=== PATIENT | female | born 1990 | race Caucasian/White ===

== ENCOUNTER → 2017-10-20 | Outpatient (REF) | payer BC, OTHER, SELFPAY ==
[~2017-10-20] MED LIST: ACET50TA PO; IBUP100SUS PO
== END ==
LOC: M LAB REF 16:53
PROVIDERS: ATTEND Physician Assistant
DX: R52 Pain, unspecified (principal); R50.9 Fever, unspecified

== ENCOUNTER → 2018-05-01 | Outpatient (REF) | payer OTHER ==
[2018-05-01 15:07] LABS: APPEARANCE, URINE CLEAR (CLEAR); BACTERIA, URINE AUTO NEGATIVE (NEGATIVE); BILIRUBIN, URINE AUTO NEGATIVE (NEGATIVE); BLOOD, URINE BLOOD NEGATIVE (NEGATIVE); COLOR, URINE YELLOW (YELLOW); GLUCOSE, URINE (UA) AUTO NEGATIVE (NEGATIVE); KETONE, URINE AUTO NEGATIVE (NEGATIVE); LEUKOCYTE ESTERASE, URINE AUTO NEGATIVE (NEGATIVE); MUCUS, URINE SMALL (NEGATIVE); NITRITE, URINE AUTO NEGATIVE (NEGATIVE); PROTEIN, URINE AUTO NEGATIVE (NEGATIVE); RBC, URINE AUTO 1 /HPF (0-3); SQUAMOUS EPITHELIAL CELL UR AU 3 /HPF (0-6); UROBILINOGEN, URINE AUTO 0.2 mg/dL (0.0-2.0); WBC, URINE AUTO 1 /HPF (0-3)
== END ==
LOC: M LAB REF 14:16
DX: R10.9 Unspecified abdominal pain (principal)

== ENCOUNTER → 2018-10-01 | Outpatient (REF) | payer MEDICAID, SELFPAY | LOC: M LAB REF 13:29 | PROVIDERS: ATTEND Advanced Practice Midwife | DX: Z12.4 Encounter for screening for malignant neoplasm of cervix (principal); R87.612 Low grade squamous intraepithelial lesion on cytologic smear of cervix (LGSIL) ==

== ENCOUNTER → 2018-11-04 | Outpatient (REF) | payer MEDICAID | LOC: M LAB REF 17:22 | PROVIDERS: ATTEND Obstetrics & Gynecology | DX: N87.1 Moderate cervical dysplasia (principal) ==

== ENCOUNTER → 2018-12-21 | Outpatient (CLI) | payer OTHER ==
[2018-12-21 21:07] LABS: BASO % 0.5 % (0.0-1.0); EOS # 0.1 10^3/uL (0.0-0.50); EOS % 0.8 % (0.0-3.0); HEMATOCRIT 36.3 % (36.0-47.0); HEMOGLOBIN 11.4 g/dl (12.0-15.5); LYMPH # 1.9 10^3/uL (1.5-6.5); LYMPH % 21.5 % (24.0-44.0); MEAN CORPUSCULAR HEMOGLOBIN 27.9 pg (27.0-33.0); MEAN CORPUSCULAR HGB CONC 31.4 g/dl (32.0-36.5); MEAN CORPUSCULAR VOLUME 88.8 fl (80.0-96.0); MONO # 0.5 10^3/uL (0.0-0.8); MONO % 6.2 % (0.0-5.0); NEUTROPHILS # 6.2 10^3/uL (1.8-7.7); NEUTROPHILS % 70.7 % (36.0-66.0); PLATELET COUNT, AUTOMATED 282 10^3/uL (150-450); RED BLOOD COUNT 4.09 10^6/uL (4.00-5.40); WHITE BLOOD COUNT 8.7 10^3/uL (4.0-10.0)
[2018-12-22 10:38] LABS: HIV 1&2 SCREEN CENTAUR NEGATIVE (NEGATIVE); RUBELLA IgG QUALITATIVE IMMUNE (IMMUNE)
[2018-12-22 10:49] LABS: CHLAMYDIA DNA AMPLIFICATION NEGATIVE (NEGATIVE); GC DNA AMPLIFICATION NEGATIVE (NEGATIVE)
== END ==
LOC: M SMT 13:49
PROVIDERS: ATTEND Advanced Practice Midwife
DX: Z34.81 Encounter for supervision of other normal pregnancy, first trimester (principal); Z3A.10 10 weeks gestation of pregnancy

== ENCOUNTER → 2018-12-27 | Outpatient (CLI) | payer OTHER | LOC: M SMT 15:22 | PROVIDERS: ATTEND Advanced Practice Midwife | DX: Z36.89 Encounter for other specified antenatal screening (principal) ==

== ENCOUNTER → 2019-01-17 | Outpatient (REF) | payer OTHER | LOC: M LAB REF 13:07 | PROVIDERS: ATTEND Advanced Practice Midwife | DX: Z34.82 Encounter for supervision of other normal pregnancy, second trimester (principal) ==

== ENCOUNTER → 2019-02-14 | Outpatient (CLI) | payer OTHER ==
[~2019-02-14] MED LIST changes: -ACET50TA PO; +IBUP100S44 PO; -IBUP100SUS PO; +MAPA500T17 PO
--- NOTE | 2019-02-14 15:58 | REP ---
Clinical: Anatomical evaluation. Comparison: None . Findings: Examination demonstrates a single live intrauterine in cephalic presentation. motion is identified by technologist. Placenta is noted anterior and grade grade 1 without evidence for placenta previa or abruption. Amniotic fluid volume is normal. Cervix measures 5.9 cm in length and appears closed. Nuchal cord noted. Gestational age by LMP 18 weeks 2 days with PUSHPA 07/16/2019 . Gestational age by current measurements 18 weeks 6 days with PUSHPA 07/12/2019 . FHR equals 160 beats per minute. BPD 4.5 cm 19 weeks 3 days HC 16.3 cm 19 weeks 0 days AC 13.0 cm 18 weeks 4 days FL 3.0 cm 19 weeks 1 day HL 2.9 cm 19 weeks 4 days HC/AC ratio 1.25 Estimated weight 262 grams ( 69th percentile). Anatomical assessment demonstrates normal structures including cranium, choroid plexus, cavum, cerebellum/posterior fossa, facial features, lungs, four-chamber heart, diaphragm, stomach, cord insertion/three-vessel cord, kidneys/bladder, spine, and extremities. Impression: 1. Single live intrauterine in cephalic presentation demonstrating appropriate interval growth. 2. Nuchal cord noted. 3. Limited evaluation of the cardiac ventricular outflow tracts. Remainder of the anatomical assessment is complete and normal. Electronically Signed by Narendra Cho MD 02/14/2019 03:50 P
== END ==
LOC: M SMT 14:28
PROVIDERS: ATTEND Advanced Practice Midwife
DX: Z34.82 Encounter for supervision of other normal pregnancy, second trimester (principal); Z3A.18 18 weeks gestation of pregnancy; O69.81X0 Labor and delivery complicated by cord around neck, without compression, not applicable or unspecified

== ENCOUNTER → 2019-03-08 | Outpatient (CLI) | payer OTHER ==
--- NOTE | 2019-03-09 08:03 | REP ---
Obstetric sonography: History: Supervision of followup anatomy. Findings: Scanning through the gravid uterus demonstrates a viable single intrauterine gestation in a cephalic lie. motion is observed and heart rate is recorded at 146 beats per minute. An anterior grade 1 placenta is seen without evidence of previa or abruption. Amniotic fluid is subjectively normal. Closed cervical length is 4.6 cm. No extrauterine abnormalities observed. There has been appropriate interval growth. Umbilical cord is seen draping over the neck. Closed cervical length is measured at 4.6 cm viewed transabdominally. No anomaly is seen. The following anatomic structures are identified and felt to be sonographically unremarkable: cranium, choroid plexus, cavum, cerebellum and posterior fossa, face and profile, lungs, four-chamber heart with left and right ventricular outflow tract views, diaphragm, left-sided stomach, abdominal wall cord insertion, three-vessel umbilical cord, kidneys and bladder, spine, upper and lower extremities. Biometry chart: BPD 5.6 cm = 23 weeks 0 days Head circumference 20.3 cm = 22 weeks 3 days Abdominal circumference 18.0 cm = 22 weeks 6 days Femur length 3.9 cm = 22 weeks 4 days Humeral length 3.7 cm = 22 weeks 6 days HC/AC ratio normal 1.13. Cephalic index normal 0.77. Estimated weight 525 grams, 1 pound 2 ounces, 91st percentile for 21 weeks 3 days. Impression: Viable single intrauterine gestation at 22 weeks 5 days by today's composite sonographic criteria. Expected gestational age estimate based on prior sonography is 22 weeks 0 days. PUSHPA by prior sonography July 12, 2019. anatomic survey is felt to be complete. Electronically Signed by Ervin Jacinto MD 03/09/2019 09:11 A
== END ==
LOC: M RAD 16:02
PROVIDERS: ATTEND Advanced Practice Midwife
DX: Z34.82 Encounter for supervision of other normal pregnancy, second trimester (principal); Z3A.22 22 weeks gestation of pregnancy

== ENCOUNTER → 2019-04-13 | Outpatient (CLI) | payer OTHER ==
[2019-04-13 11:06] LABS: HEMATOCRIT 35.1 % (36.0-47.0); HEMOGLOBIN 10.7 g/dl (12.0-15.5); MEAN CORPUSCULAR HEMOGLOBIN 27.8 pg (27.0-33.0); MEAN CORPUSCULAR HGB CONC 30.5 g/dl (32.0-36.5); MEAN CORPUSCULAR VOLUME 91.2 fl (80.0-96.0); PLATELET COUNT, AUTOMATED 250 10^3/uL (150-450); RED BLOOD COUNT 3.85 10^6/uL (4.00-5.40); WHITE BLOOD COUNT 9.9 10^3/uL (4.0-10.0)
== END ==
LOC: M SMT 09:07
PROVIDERS: ATTEND Advanced Practice Midwife
DX: Z34.82 Encounter for supervision of other normal pregnancy, second trimester (principal); Z3A.00 Weeks of gestation of pregnancy not specified

== ENCOUNTER → 2019-06-22 | Outpatient (REF) | payer OTHER | LOC: M LAB REF 17:25 | PROVIDERS: ATTEND Obstetrics & Gynecology | DX: Z34.83 Encounter for supervision of other normal pregnancy, third trimester (principal) ==

== ENCOUNTER → 2019-06-28 | Outpatient (CLI) | payer OTHER | LOC: M SMT 08:50 | PROVIDERS: ATTEND Advanced Practice Midwife | DX: Z36.89 Encounter for other specified antenatal screening (principal); Z3A.00 Weeks of gestation of pregnancy not specified ==

== ENCOUNTER 2019-07-09 23:21 | Inpatient (IN) | payer OTHER ==
[~2019-07-09] VITALS: Ht 157.5 cm; Wt 91.3 kg
[2019-07-09 23:28] VITALS: BP 117/73
[2019-07-09] MEDS ORDERED: OXYTOCIN 30 UNITS IN 0.9% NaCl 500ML IV BAG (J2590) As Ordered ONE (23:28)
[2019-07-09 23:43] VITALS: BP 115/73
[2019-07-09] MEDS ORDERED: OXYTOCIN DRIP 30 UNITS in APPROPRIATE DILUENT 1 EA IV SCH (23:47)
[2019-07-09] MEDS ORDERED: LR 1,000 ML IV SCH (23:47)
[2019-07-09 23:58] VITALS: BP 114/69
[2019-07-10] MEDS ORDERED: ACETAMINOPHEN 500 MG TAB PO PRN
[2019-07-10] MEDS ORDERED: DIBUCAINE 1% OINTMENT 30GM TOP PRN
[2019-07-10] MEDS ORDERED: IBUPROFEN 600 MG TAB PO PRN
[2019-07-10] MEDS ORDERED: PROMETHAZINE 25 MG TAB PO PRN
[2019-07-10] MEDS ORDERED: RHOGAM 300 MCG (1500 IU) INJ (J2790) IM SCH
[2019-07-10] MEDS ORDERED: DOCUSATE SODIUM 100 MG CAP PO PRN
[2019-07-10] MEDS ORDERED: ACETAMINOPHEN TAB 650MG DOSE (2X325MG) PO PRN
[2019-07-10] MEDS ORDERED: MEASLES,MUMPS,RUBELLA VACCINE INJ (MMR-II) (90707) SC SCH
[2019-07-10] MEDS ORDERED: IBUPROFEN 800 MG TAB PO PRN
[2019-07-10] MEDS ORDERED: ONDANSETRON 4MG/2ML VIAL (J2405) IV PRN
[2019-07-10 00:14] VITALS: BP 115/64
[2019-07-10 00:23] LABS: HEMATOCRIT 35.4 % (36.0-47.0); HEMOGLOBIN 11.1 g/dl (12.0-15.5); MEAN CORPUSCULAR HEMOGLOBIN 27.4 pg (27.0-33.0); MEAN CORPUSCULAR HGB CONC 31.4 g/dl (32.0-36.5); MEAN CORPUSCULAR VOLUME 87.4 fl (80.0-96.0); PLATELET COUNT, AUTOMATED 219 10^3/uL (150-450); RED BLOOD COUNT 4.05 10^6/uL (4.00-5.40); WHITE BLOOD COUNT 15.1 10^3/uL (4.0-10.0)
[2019-07-10 00:28] VITALS: BP 118/69
[2019-07-10] MEDS ORDERED: SLF 3 ML SYR IV PRN (00:30)
[2019-07-10 00:48] VITALS: BP 115/64
[2019-07-10 01:40] VITALS: BP 134/58
[2019-07-10 06:00] VITALS: BP 110/59
[2019-07-10] MEDS: SLF 3 ML SYR IV SCH ×3 (06:00→22:00)
[2019-07-10] MEDS ORDERED: PRENATAL VITAMINS CHEWABLE TABLET PO SCH (09:00)
[2019-07-10 18:17] VITALS: BP 101/54
[2019-07-11 05:56] VITALS: BP 102/58
[2019-07-11] MEDS: SLF 3 ML SYR IV SCH (06:00)
== END 2019-07-11 14:10 | disposition home or self-care (01) | DRG 544 ==
LOC: M LDI 23:21 → M OBS 07-10 01:30
PROVIDERS: ADMIT Obstetrics & Gynecology; ATTEND Obstetrics & Gynecology
PROC: 10D17ZZ Extraction of Products of Conception, Retained, Via Natural or Artificial Opening (ICD-10-PCS; principal; 2019-07-09)
DX: Z39.0 Encounter for care and examination of mother immediately after delivery (principal)

== ENCOUNTER → 2020-05-15 | Outpatient (REF) | payer OTHER | LOC: M SFHCWAGY 16:55 | PROVIDERS: ATTEND Advanced Practice Midwife | DX: Z12.4 Encounter for screening for malignant neoplasm of cervix (principal) ==

== ENCOUNTER → 2022-03-24 | Outpatient (REF) | payer OTHER | LOC: M PLALAB 12:56 | PROVIDERS: ATTEND Advanced Practice Midwife | DX: Z12.4 Encounter for screening for malignant neoplasm of cervix (principal) ==

== ENCOUNTER → 2023-02-04 | Outpatient (REF) | payer OTHER | LOC: M LAB REF 10:19 | PROVIDERS: ATTEND Physician Assistant | DX: J02.9 Acute pharyngitis, unspecified (principal); B34.9 Viral infection, unspecified ==

== ENCOUNTER → 2023-06-23 | Outpatient (CLI) | payer OTHER | LOC: M WHC 09:56 | PROVIDERS: ATTEND Registered Nurse | DX: N64.52 Nipple discharge (principal) ==

== ENCOUNTER → 2023-07-13 | Outpatient (REF) | payer OTHER | LOC: M PLALAB 16:43 | PROVIDERS: ATTEND Nurse Practitioner Family | DX: O92.6 Galactorrhea (principal) ==

== ENCOUNTER → 2023-10-14 | Outpatient (REF) | payer OTHER | LOC: M SFHCWAGY 10:16 | PROVIDERS: ATTEND Nurse Practitioner Family | DX: Z12.4 Encounter for screening for malignant neoplasm of cervix (principal) ==

== ENCOUNTER 2024-10-06 07:37 | Day surgery (SDC) | payer OTHER ==
[~2024-10-06] VITALS: Ht 157.5 cm; Wt 84.8 kg
[~2024-10-06 07:37] MED LIST changes: +NORE1TAB73 PO
[2024-10-06] MEDS ORDERED: LR 1,000 ML IV SCH (08:25)
[2024-10-06 08:37] LABS: HEMATOCRIT 37.4 % (36.0-47.0); HEMOGLOBIN 11.8 g/dl (12.0-15.5); MEAN CORPUSCULAR HEMOGLOBIN 27.7 pg (27.0-33.0); MEAN CORPUSCULAR HGB CONC 31.6 g/dl (32.0-36.5); MEAN CORPUSCULAR VOLUME 87.8 fl (80.0-96.0); PLATELET COUNT, AUTOMATED 291 10^3/uL (150-450); RED BLOOD COUNT 4.26 10^6/uL (4.00-5.40); WHITE BLOOD COUNT 5.4 10^3/uL (4.0-10.0)
[2024-10-06] MEDS ORDERED: ROCURONIUM BROMIDE 50MG/5ML VIAL As Ordered ONE (09:07)
[2024-10-06] MEDS ORDERED: KETOROLAC 60MG 2ML VIAL As Ordered ONE (09:07)
[2024-10-06] MEDS ORDERED: ONDANSETRON 4MG 2ML VIAL As Ordered ONE (09:07)
[2024-10-06] MEDS ORDERED: propofoL 200 MG/20 ML VIAL As Ordered ONE (09:07)
[2024-10-06] MEDS ORDERED: LIDOCAINE 2% 100MG/5ML SDV (FOR ANES.) As Ordered ONE (09:07)
[2024-10-06] MEDS ORDERED: SUGAMMADEX SODIUM 500 MG/5 ML VIAL (BRIDION) As Ordered ONE (09:08)
[2024-10-06] MEDS ORDERED: fentaNYL 100 MCG/2 ML INJECTION As Ordered ONE (09:10)
[2024-10-06] MEDS ORDERED: MIDAZOLAM INJ 2MG/2ML VIAL As Ordered ONE (09:10)
[2024-10-06] MEDS ORDERED: IBUP-1022 PO (09:37)
[2024-10-06] MEDS ORDERED: OXYC1TAB23 PO (09:37)
[2024-10-06] MEDS ORDERED: ACETAMINOPHEN 1000MG/100ML IV BAG As Ordered ONE (09:38)
[2024-10-06] MEDS ORDERED: fentaNYL 100 MCG/2 ML INJECTION IV PRN (10:10)
[2024-10-06] MEDS ORDERED: oxyCODONE 5MG TAB PO PRN (10:10)
[2024-10-06] MEDS ORDERED: ONDANSETRON 4MG 2ML VIAL IV PRN (10:10)
[2024-10-06 11:55] VITALS: BP 98/63; TEMP 96.8; O2SAT 99
== END 2024-10-06 12:00 | disposition home or self-care (01) ==
LOC: M SDC 07:37
PROVIDERS: ATTEND Specialist
DX: Z30.2 Encounter for sterilization (principal); Z79.3 Long term (current) use of hormonal contraceptives
CPT/HCPCS: 36415; 58661; 81025; 85027; 88302; J0131; J0665; J1100; J1885; J2250; J2405; J3010

== ENCOUNTER → 2025-01-30 | Outpatient (CLI) | payer OTHER ==
[~2025-01-30] MED LIST changes: +IBUP-1022 PO; +OXYC1TAB23 PO
[2025-01-30 18:33] LABS: PROLACTIN 8.95 NG/ML; THYROID STIMULATING HORMONE 2.932 uIU/ML (0.55-4.78)
== END ==
LOC: M PLALAB 16:28
PROVIDERS: ATTEND Nurse Practitioner Family
DX: N64.3 Galactorrhea not associated with childbirth (principal); Z12.4 Encounter for screening for malignant neoplasm of cervix; Z11.51 Encounter for screening for human papillomavirus (HPV); R87.610 Atypical squamous cells of undetermined significance on cytologic smear of cervix (ASC-US)

== ENCOUNTER → 2025-02-06 | Outpatient (CLI) | payer OTHER | LOC: M WHC 16:14 | PROVIDERS: ATTEND Nurse Practitioner Family | DX: Z12.31 Encounter for screening mammogram for malignant neoplasm of breast (principal) ==

== ENCOUNTER → 2025-06-13 | Outpatient (REF) | payer OTHER ==
[2025-06-16 15:17] LABS: HPV APTIMA Not Detected (Not Detected)
== END ==
LOC: M PLALAB 14:50
PROVIDERS: ATTEND Obstetrics & Gynecology
DX: R87.615 Unsatisfactory cytologic smear of cervix (principal)

== ENCOUNTER → 2025-06-28 | Outpatient (CLI) | payer OTHER ==
[2025-06-28 12:09] LABS: BASO # 0.0 10^3/uL (0.0-0.2); BASO % 0.6 % (0.0-1.0); EOS # 0.1 10^3/uL (0.0-0.5); EOS % 1.8 % (0.0-3.0); LYMPH # 2.4 10^3/uL (1.5-5.0); LYMPH % 33.7 % (24.0-44.0); MONO # 0.5 10^3/uL (0.0-0.8); MONO % 6.4 % (2.0-8.0); NEUTROPHILS # 4.2 10^3/uL (1.5-8.5); NEUTROPHILS % 57.2 % (36.0-66.0); PLATELET COUNT, AUTOMATED 298 10^3/uL (150-450)
[2025-06-28 12:45] LABS: ESTIMATED AVERAGE GLUCOSE 105.0 MG/DL (60-110)
[2025-06-28 12:51] LABS: ALT/SGPT 22 U/L (7.0-40); AST/SGOT 15 U/L (<34); CALCIUM LEVEL 9.0 MG/DL (8.5-10.1); CARBON DIOXIDE LEVEL 28 MMOL/L (20-31); CHLORIDE LEVEL 106 MMOL/L (98-107); CHOLESTEROL LEVEL 172 MG/DL (<200); CHOLESTEROL RISK RATIO 3.92 (<5); CREATININE FOR GFR 0.83 MG/DL (0.55-1.30); GLOMERULAR FILTRATION RATE > 90.0 (>60); LDL CHOLESTEROL 111.2 MG/DL (<100); NON-HDL-C 128.2 MG/DL; POTASSIUM SERUM 4.4 MMOL/L (3.5-5.1); SODIUM LEVEL 143 MMOL/L (136-145); TRIGLYCERIDES LEVEL 85 MG/DL (<150)
== END ==
LOC: M WUC 10:47
PROVIDERS: ATTEND Registered Nurse
DX: Z00.00 Encounter for general adult medical examination without abnormal findings (principal)